=== PATIENT | female | born 1945 | race Caucasian/White ===

== ENCOUNTER 2025-03-22 15:34 | Outpatient (CLI) | payer MEDICARE, OTHER, SELFPAY | END 2025-03-22 15:35 | disposition home or self-care (01) | PROVIDERS: PCP Family Medicine; Visit Provider Family Medicine | DX: I10 Essential (primary) hypertension (principal); E78.2 Mixed hyperlipidemia; E11.9 Type 2 diabetes mellitus without complications | CPT/HCPCS: 80048; 80061; 82728; 84460; 85025 ==